=== PATIENT | male | born 2005 | race Hispanic/Latino ===

== ENCOUNTER 2023-08-26 14:28 | Emergency (ER) | payer OTHER ==
[~2023-08-26] VITALS: Ht 167.6 cm; Wt 90.7 kg
[2023-08-26] MEDS: IBUPROFEN 800 MG TAB PO ONE (17:41)
[2023-08-26 17:46] VITALS: BP 130/69; PULSE 66; RESP 16; O2SAT 99
[2023-08-26] MEDS ORDERED: CYCL10TA16 PO (18:19)
[2023-08-26] MEDS ORDERED: IBUP-2077 PO (18:19)
== END 2023-08-26 18:36 | disposition home or self-care (01) ==
LOC: EDH 14:28
DX: S39.012A Strain of muscle, fascia and tendon of lower back, initial encounter (principal); X58.XXXA Exposure to other specified factors, initial encounter; Y93.89 Activity, other specified; Y92.89 Other specified places as the place of occurrence of the external cause; Y99.8 Other external cause status
CPT/HCPCS: 76770